=== PATIENT | male | born 1965 | race Two or more races ===

== ENCOUNTER 2017-05-30 09:32 | Outpatient (CLI) | payer OTHER | END 2017-05-30 09:37 | disposition home or self-care (01) | LOC: RAD 09:32 | DX: J44.9 Chronic obstructive pulmonary disease, unspecified (principal) ==

== ENCOUNTER 2017-06-06 14:26 | Outpatient (CLI) | payer OTHER | END 2017-06-06 14:29 | disposition home or self-care (01) | LOC: NUCLEAR 14:26 | DX: I10 Essential (primary) hypertension (principal); J44.9 Chronic obstructive pulmonary disease, unspecified; I67.89 Other cerebrovascular disease; E11.9 Type 2 diabetes mellitus without complications ==

== ENCOUNTER 2017-08-14 10:33 | Emergency (ER) | payer OTHER ==
[~2017-08-14] VITALS: Ht 180.3 cm; Wt 85.7 kg
[2017-08-14] MEDS ORDERED: FORTAMET1000 MG (11:00)
[2017-08-14] MEDS ORDERED: LOSARTAN POTASS25 MG (11:00)
[2017-08-14] MEDS ORDERED: IBUPROFEN800 MG PO (15:40)
[2017-08-14] MEDS ORDERED: HIBICLENS118 ML TOP (15:40)
[2017-08-14] MEDS ORDERED: BACTRIM DS TAB1 EACH PO (15:40)
[2017-08-14] MEDS ORDERED: MUPIROCIN22 GM TOP (15:40)
== END 2017-08-14 15:53 | disposition home or self-care (01) ==
LOC: ER 10:33
DX: L02.31 Cutaneous abscess of buttock (principal); L72.0 Epidermal cyst; E11.65 Type 2 diabetes mellitus with hyperglycemia; B96.4 Proteus (mirabilis) (morganii) as the cause of diseases classified elsewhere

== ENCOUNTER 2017-10-16 16:32 | Emergency (ER) | payer OTHER ==
[~2017-10-16] VITALS: Ht 180.3 cm; Wt 95.3 kg
[~2017-10-16 16:32] MED LIST: BACTRIM DS TAB1 EACH PO; FORTAMET1000 MG; HIBICLENS118 ML TOP; IBUPROFEN800 MG PO; LOSARTAN POTASS25 MG; MUPIROCIN22 GM TOP
[2017-10-16] MEDS ORDERED: FORTAMET1000 MG (17:20)
== END 2017-10-16 20:30 | disposition home or self-care (01) ==
LOC: ER 16:32
DX: E11.65 Type 2 diabetes mellitus with hyperglycemia (principal); L03.116 Cellulitis of left lower limb; I96 Gangrene, not elsewhere classified

== ENCOUNTER 2017-10-23 07:22 | Outpatient (CLI) | payer OTHER | END 2017-10-23 07:28 | disposition home or self-care (01) | LOC: NUCLEAR 07:22 | DX: I25.10 Atherosclerotic heart disease of native coronary artery without angina pectoris (principal); I73.9 Peripheral vascular disease, unspecified; I87.2 Venous insufficiency (chronic) (peripheral) ==

== ENCOUNTER 2017-10-25 07:26 | Outpatient (CLI) | payer OTHER | END 2017-10-25 07:44 | disposition home or self-care (01) | LOC: TOM 07:26 | DX: R41.2 Retrograde amnesia (principal); G30.8 Other Alzheimer's disease ==

== ENCOUNTER 2017-11-27 09:41 | Emergency (ER) | payer OTHER ==
[~2017-11-27] VITALS: Ht 180.3 cm; Wt 95.3 kg
[2017-11-27] MEDS ORDERED: NEURONTIN800 MG (10:00)
[2017-11-27] MEDS ORDERED: GLIMEPIRIDE1 MG (10:01)
[2017-11-27] MEDS ORDERED: PERCOCET 5-3251 EACH PO (12:35)
== END 2017-11-27 15:02 | disposition home or self-care (01) ==
LOC: ER 09:41
DX: M79.662 Pain in left lower leg (principal); M79.661 Pain in right lower leg; I87.2 Venous insufficiency (chronic) (peripheral)

== ENCOUNTER 2019-05-04 11:18 | Outpatient (CLI) | payer OTHER ==
[~2019-05-04 11:18] MED LIST changes: +GLIMEPIRIDE1 MG; +NEURONTIN800 MG; +PERCOCET 5-3251 EACH PO
== END 2019-05-04 15:26 | disposition home or self-care (01) ==
LOC: TOM 11:18
DX: I63.30 Cerebral infarction due to thrombosis of unspecified cerebral artery (principal); G40.209 Localization-related (focal) (partial) symptomatic epilepsy and epileptic syndromes with complex partial seizures, not intractable, without status epilepticus

== ENCOUNTER 2020-09-15 13:48 | Outpatient (CLI) | payer OTHER | END 2020-09-15 14:09 | disposition home or self-care (01) | LOC: SONOGRAMA 13:48 → MAMO-SONO 14:15 | PROVIDERS: ATTEND Internal Medicine | DX: E11.69 Type 2 diabetes mellitus with other specified complication (principal); M10.9 Gout, unspecified; E04.1 Nontoxic single thyroid nodule; E78.2 Mixed hyperlipidemia; E11.22 Type 2 diabetes mellitus with diabetic chronic kidney disease; I25.10 Atherosclerotic heart disease of native coronary artery without angina pectoris; I63.9 Cerebral infarction, unspecified; M19.90 Unspecified osteoarthritis, unspecified site; E03.9 Hypothyroidism, unspecified; I10 Essential (primary) hypertension ==

== ENCOUNTER 2021-02-13 13:17 | Outpatient (CLI) | payer OTHER | END 2021-02-13 13:19 | disposition home or self-care (01) | LOC: SONOGRAMA 13:17 | PROVIDERS: ATTEND Internal Medicine Cardiovascular Disease | DX: R10.84 Generalized abdominal pain (principal); I10 Essential (primary) hypertension; E11.9 Type 2 diabetes mellitus without complications ==

== ENCOUNTER 2023-03-05 18:10 | Inpatient (IN) | payer OTHER ==
[~2023-03-05] VITALS: Ht 180.3 cm; Wt 62.6 kg
[2023-03-05 19:05] LABS: HEMATOCRIT 32.9 % (39.0-48.0); HEMOGLOBIN 10.9 g/dL (13-16.00); MEAN CELL VOLUME 91.9 fL (80.0-100.00); MEAN CORPUSCULAR HEMOGLOBIN 30.5 pg (27.00-32.0); MEAN CORPUSCULAR HGB CONC 33.2 g/dl (32.0-36.0); PLATELET COUNT 280 K/uL (150-450); RED BLOOD COUNT 3.58 M/uL (4.00-6.00); RED CELL DISTRIBUTION WIDTH 15.9 % (11.5-14.5)
[2023-03-05 19:27] LABS: INR 1.06; PARTIAL THROMBOPLASTIN TIME 26.8 SECONDS (22.0-34.0); PROTHROMBIN TIME 11.1 SECONDS (9.0-11.5)
[2023-03-05 19:33] LABS: ALBUMIN 3.2 gm/dL (3.4-5.0); BILIRUBIN TOTAL 0.58 mg/dL (0.3-1.2); CALCIUM 9.7 mg/dL (8.5-10.1); CREATININE SERUM 2.37 mg/dL (0.70-1.30); GFR 28.35; GLOBULINA 4.4 G/DL (2.4-3.5); POTASSIUM 5.14 mEq/L (3.5-5.1); TOTAL PROTEIN 7.6 gm/dL (6.4-8.2)
[2023-03-05 20:55] LABS: PH,URINE 6.5 (5.0-8.0); URINE APPEARANCE Clear; URINE BILIRRUBIN Negative (NEGATIVE); URINE BLOOD NHT; URINE COLOR Yellow; URINE LEUKOCYTE Small; URINE NITRATE Negative; URINE PROTEIN 30 (NEGATIVE)
[2023-03-05 21:01] LABS: URINE EPITHELIAL CELLS 4.7 uL (0.0-38.8); URINE RBC 11.9 uL (0.0-20.8); URINE WBC 348.1 uL (0.0-23.2)
[2023-03-05 21:02] LABS: URINE BACTERIA > 9821.5 uL (0.0-1933); URINE GLUCOSE 500 MG/DL (NEGATIVE)
[2023-03-06 00:36] LABS: ABG PH 7.519 (7.35-7.45); ABG PO2 109.3 mmHg (80-100); ABG pCO2 30.1 mmHg (35-45)
[2023-03-06 00:37] LABS: BASE EXCESS 2.1 mmol/l; SaO2 98.8 %; Tco2 24.9 mmol/l; allen test SATISFACTORY; o2 21 %; puncture site RADIAL RIGHT
[2023-03-07 06:15] LABS: HEMATOCRIT 27.7 % (39.0-48.0); HEMOGLOBIN 9.3 g/dL (13-16.00); MEAN CELL VOLUME 91.7 fL (80.0-100.00); MEAN CORPUSCULAR HEMOGLOBIN 30.8 pg (27.00-32.0); MEAN CORPUSCULAR HGB CONC 33.6 g/dl (32.0-36.0); PLATELET COUNT 215 K/uL (150-450); RED BLOOD COUNT 3.02 M/uL (4.00-6.00); RED CELL DISTRIBUTION WIDTH 16.2 % (11.5-14.5)
[2023-03-07 07:14] LABS: ALBUMIN 2.6 gm/dL (3.4-5.0); BILIRUBIN TOTAL 0.56 mg/dL (0.3-1.2); CALCIUM 8.8 mg/dL (8.5-10.1); CREATININE SERUM 1.95 mg/dL (0.70-1.30); GFR 35.51; GLOBULINA 3.7 G/DL (2.4-3.5); PHOSPHOROUS 2.6 mg/dL (2.5-4.9); POTASSIUM 3.72 mEq/L (3.5-5.1); PROSTATIC SPECIFIC ANTIGEN 2.13 NG/ML (0.010-4.00); TOTAL PROTEIN 6.3 gm/dL (6.4-8.2)
[2023-03-07 07:24] LABS: C-REACTIVE PROTEIN 21.7 MG/DL (0.00-0.29); MAGNESIUM 1.4 mg/dL (1.8-2.4)
[2023-03-08 04:46] LABS: HEMATOCRIT 27.8 % (39.0-48.0); MEAN CELL VOLUME 90.9 fL (80.0-100.00); MEAN CORPUSCULAR HGB CONC 34.3 g/dl (32.0-36.0); PLATELET COUNT 221 K/uL (150-450); RED BLOOD COUNT 3.06 M/uL (4.00-6.00); RED CELL DISTRIBUTION WIDTH 15.8 % (11.5-14.5)
[2023-03-08 04:47] LABS: HEMOGLOBIN 9.5 g/dL (13-16.00)
[2023-03-09 07:42] LABS: ALBUMIN 2.4 gm/dL (3.4-5.0); BILIRUBIN TOTAL 0.24 mg/dL (0.3-1.2); CALCIUM 8.9 mg/dL (8.5-10.1); CREATININE SERUM 1.69 mg/dL (0.70-1.30); GFR 41.89; GLOBULINA 3.4 G/DL (2.4-3.5); POTASSIUM 3.7 mEq/L (3.5-5.1); TOTAL PROTEIN 5.8 gm/dL (6.4-8.2)
[2023-03-09 07:48] LABS: HEMATOCRIT 26.3 % (39.0-48.0); MEAN CELL VOLUME 93.2 fL (80.0-100.00); MEAN CORPUSCULAR HGB CONC 33.9 g/dl (32.0-36.0); PLATELET COUNT 226 K/uL (150-450); RED BLOOD COUNT 2.82 M/uL (4.00-6.00); RED CELL DISTRIBUTION WIDTH 16.1 % (11.5-14.5)
[2023-03-09 08:04] LABS: HEMOGLOBIN 8.9 g/dL (13-16.00); MEAN CORPUSCULAR HEMOGLOBIN 31.5 pg (27.00-32.0)
[2023-03-10 07:35] LABS: ALBUMIN 2.3 gm/dL (3.4-5.0); CALCIUM 8.7 mg/dL (8.5-10.1); CREATININE SERUM 1.47 mg/dL (0.70-1.30); GFR 49.2; PHOSPHOROUS 3.3 mg/dL (2.5-4.9); POTASSIUM 3.93 mEq/L (3.5-5.1)
[2023-03-10 08:26] LABS: URINE APPEARANCE Clear; URINE BILIRRUBIN Negative (NEGATIVE); URINE BLOOD Negative; URINE COLOR Yellow; URINE LEUKOCYTE Trace; URINE NITRATE Negative; URINE PROTEIN Negative (NEGATIVE); URINE UROBILINOGEN 0.2 E.U./dl
[2023-03-10 08:28] LABS: URINE BACTERIA 11.3 uL (0.0-1933); URINE EPITHELIAL CELLS 2.6 uL (0.0-38.8); URINE RBC 21.9 uL (0.0-20.8); URINE WBC 39.8 uL (0.0-23.2)
[2023-03-10 09:00] LABS: URINE GLUCOSE 250 MG/DL (NEGATIVE)
== END 2023-03-10 18:34 | disposition home or self-care (01) | DRG 690 ==
LOC: ER 18:10 → MEDI 22:26
PROVIDERS: General Practice; Internal Medicine; Internal Medicine Infectious Disease; ADMIT Internal Medicine; ATTEND Internal Medicine
PROC: B020ZZZ Computerized Tomography (CT Scan) of Brain (ICD-10-PCS; 2023-03-05)
PROC: B24BYZZ Ultrasonography of Heart with Aorta using Other Contrast (ICD-10-PCS; 2023-03-05)
PROC: B345ZZZ Ultrasonography of Bilateral Common Carotid Arteries (ICD-10-PCS; 2023-03-05)
PROC: BW21ZZZ Computerized Tomography (CT Scan) of Abdomen and Pelvis (ICD-10-PCS; 2023-03-07)
PROC: 0T9B70Z Drainage of Bladder with Drainage Device, Via Natural or Artificial Opening (ICD-10-PCS; principal; 2023-03-08)
PROC: BV44ZZZ Ultrasonography of Scrotum (ICD-10-PCS; 2023-03-09)
DX: N39.0 Urinary tract infection, site not specified (principal); R65.10 Systemic inflammatory response syndrome (SIRS) of non-infectious origin without acute organ dysfunction; N17.9 Acute kidney failure, unspecified; F05 Delirium due to known physiological condition; I12.9 Hypertensive chronic kidney disease with stage 1 through stage 4 chronic kidney disease, or unspecified chronic kidney disease; E11.22 Type 2 diabetes mellitus with diabetic chronic kidney disease; N18.9 Chronic kidney disease, unspecified; Z79.4 Long term (current) use of insulin; R41.0 Disorientation, unspecified; N12 Tubulo-interstitial nephritis, not specified as acute or chronic

== ENCOUNTER 2023-04-28 14:47 | Emergency (ER) | payer OTHER ==
[~2023-04-28] VITALS: Ht 177.8 cm; Wt 95.3 kg
[2023-04-28] MEDS ORDERED: AVAPRO75 MG PO (15:26)
[2023-04-28] MEDS ORDERED: DEPAKOTE ER500 MG PO (15:26)
[2023-04-28] MEDS ORDERED: HUMALOG100 UNIT/2 SQ (15:27)
[2023-04-28] MEDS ORDERED: LANTUS SOL100 UNIT/1 SQ (15:27)
[2023-04-28 19:33] LABS: HEMATOCRIT 35.3 % (39.0-48.0); HEMOGLOBIN 11.9 g/dL (13-16.00); MEAN CELL VOLUME 98.6 fL (80.0-100.00); MEAN CORPUSCULAR HEMOGLOBIN 33.3 pg (27.00-32.0); MEAN CORPUSCULAR HGB CONC 33.7 g/dl (32.0-36.0); PLATELET COUNT 243 K/uL (150-450); RED BLOOD COUNT 3.58 M/uL (4.00-6.00); RED CELL DISTRIBUTION WIDTH 16.4 % (11.5-14.5)
== END 2023-04-28 20:18 | disposition home or self-care (01) ==
LOC: ER 14:48
PROVIDERS: Emergency Medicine
DX: L02.213 Cutaneous abscess of chest wall (principal); E11.9 Type 2 diabetes mellitus without complications; Z79.84 Long term (current) use of oral hypoglycemic drugs; I10 Essential (primary) hypertension; Z86.73 Personal history of transient ischemic attack (TIA), and cerebral infarction without residual deficits
CPT/HCPCS: 36415; 96365; 99283; J0696